=== PATIENT | female | born 1935 | race Caucasian/White ===

== ENCOUNTER 2023-02-17 15:01 | Emergency (ER) | payer MEDICARE, MEDICAID, SELFPAY ==
--- NOTE | ~2023-02-17 | XR_ITS ---
EXAM: XR ankle RT min 3V DATE: 02/17/2023 15:34 HISTORY: rt ankle pain due to fall/medial pain . COMPARISON: None available. FINDINGS: Decreased mineralization. Small ossific fragment in the lateral gutter. No dislocation. No lytic or blastic lesion. Mild scattered degenerative changes. Achilles enthesopathy. No erosion or p eriosteal change. Soft tissue swelling about the ankle. IMPRESSION: Small ossific fragment in the lateral ankle gutter, may represent a small avulsion fractu re fragment. Reviewed, dictated and finalized at location K. IMPRESSION: Small ossific fragment in the lateral ankle gutter, may represent a small avulsion fracture fragment.
[2023-02-17 15:16] VITALS: BP 129/69; PULSE 66; RESP 20; TEMP 37.1; O2SAT 97
--- NOTE | 2023-02-17 15:30 | ED.GENADULT ---
HPI - General Adult General Chief complaint: Extremity Injury, Lower Stated complaint: Rt Foot Pain Due To Fall Time Seen by Provider: 02/17/23 15:17 Source: patient, family (sister) and RN notes reviewed Mode of arrival: ambulatory Limitations: dementia History of Present Illness HPI narrative: Patient presents today from her assisted living facility, [facility], complaining of right great toe pain. States she may have fallen, but has no memory as she is developing dementia. Her possible fall was not witnessed. Pain has been present in the the toe for days. Pain increases with walking. She is also complaining of swelling in the ankle with some bruising. Unsure of how long it has been present. She has not tried any [id number] interventions for her symptoms prior to arrival. Related Data Home Medications Medication Instructions Recorded Confirmed aspirin 81 mg tablet,delayed 81 mg PO DAILY 02/17/23 02/17/23 release atorvastatin 10 mg tablet 10 mg PO DAILY 02/17/23 02/17/23 levothyroxine 25 mcg tablet 25 mcg PO DAILY 02/17/23 02/17/23 multivitamin with folic acid 400 1 tablet PO DAILY 02/17/23 02/17/23 mcg tablet (Daily-Jose Luis (with folic acid)) naproxen sodium 220 mg tablet 440 mg PO BID 02/17/23 02/17/23 olanzapine 5 mg tablet 5 mg PO DAILY 02/17/23 02/17/23 paroxetine HCl 40 mg tablet 40 mg PO DAILY 02/17/23 02/17/23 propranolol 40 mg tablet 40 mg PO BID 02/17/23 02/17/23 vitamins A,C,Q-mzvk-zyqhre 2,148 tablet 02/17/23 mcg-113 mg-45 mg-17.4 mg tablet (Eye Multivitamin) Allergies Allergy/AdvReac Type Severity Reaction Status Date / Time No Known Allergies Allergy Verified 02/17/23 15:04 Review of Systems Review of Systems: CONSTITUTIONAL: Denies body aches, fever, chills, or sweats. EYES: Denies visual changes, redness, or discharge. ENT: Denies rhinorrhea, congestion, sore throat, or otalgia. CARDIOVASCULAR: Denies chest pain, palpitations, or edema. RESPIRATORY: Denies cough or dyspnea. GASTROINTESTINAL: Denies abdominal pain, nausea, vomiting, or diarrhea. GENITOURINARY: Denies dysuria or hematuria. SKIN: Denies rash, itching, or wounds. MUSCULOSKELETAL: Denies back pain, or myalgia.Right ankle swelling, right great toe pain NEUROLOGIC: Denies headache, numbness, tingling, or weakness. PSYCH: Denies depression or anxiety. [facility] Past Medical History Medical History (Updated 02/17/23 @ 15:57 by Anastasia Gray, [facility], ) Dementia High cholesterol Hypothyroidism Comments At time of signature, I have reviewed and agree with nursing past medical, surgical, social and family history unless otherwise noted. Please see nursing chart for further information. There is no relevant family history pertinent to the presenting complaint Exam Narrative: GENERAL: Well-appearing, well-nourished, and in no acute distress. HEAD: Normocephalic, atraumatic. EYES: EOMI. No redness or drainage. Conjunctivae normal. ENT: Mucous membranes pink and moist. NECK: Normal AROM. CHEST: No respiratory distress. EXTREMITIES: Right great toe: Erythema and mild to moderate edema of the nail folds with hypertrophic skin. Moderate purulent discharge laterally, consistent with infected ingrown toenail. Tender to palpation. Right ankle: Patient has 1+ pitting edema to the ankle with some faint ecchymosis medially. One area of point tenderness medially. No bony tenderness. Distal sensation intact. Capillary refill normal. Pedal pulse is strong. Full range of motion of the ankle without pain. No erythema noted. SKIN: Warm, dry, no rash. Capillary refill normal. Normal skin turgor. NEURO: No focal deficits. Alert and oriented x3. Gait steady. PSYCH: Normal affect. No signs of depression or anxiety. Course Course Level of Care: Express Care Visit Vital Signs Vital signs: Vital Signs Temperature 98.7 F 02/17/23 15:16 Pulse Rate 66 02/17/23 15:16 Respi
== END 2023-02-17 15:59 | disposition home or self-care (01) ==
PROVIDERS: Emergency Provider Nurse Practitioner; PCP Family Medicine
DX: L60.0 Ingrowing nail (principal); S93.401A Sprain of unspecified ligament of right ankle, initial encounter; X58.XXXA Exposure to other specified factors, initial encounter; F03.90 Unspecified dementia, unspecified severity, without behavioral disturbance, psychotic disturbance, mood disturbance, and anxiety; E78.00 Pure hypercholesterolemia, unspecified; E03.9 Hypothyroidism, unspecified
CPT/HCPCS: 73610; 99203; G0463

== ENCOUNTER 2024-01-26 16:57 | Emergency (ER) | payer MEDICARE, MEDICAID, SELFPAY ==
[2024-01-26 17:11] VITALS: BP 132/74; PULSE 87; RESP 18; TEMP 36.7; O2SAT 97
--- NOTE | 2024-01-26 17:50 | ED.FEMALEGU ---
HPI - Female Genitourinary General Chief complaint: Urogenital-Female Stated complaint: uti symptoms Time Seen by Provider: 01/26/24 17:25 Source: patient and family Mode of arrival: ambulatory Limitations: no limitations History of Present Illness HPI Narrative: 88-year-old female presents with complaint of urinary frequency, dysuria for 2 days. Reports blood in urine today. Denies nausea vomiting, fever. Patient concerned she has urinary tract infection. Here with her sister. Patient lives at [facility]. All systems reviewed and negative except as noted above. Related Data Home Medications Medication Instructions Recorded Confirmed aspirin 81 mg tablet,delayed 81 mg PO DAILY 02/17/23 01/26/24 release atorvastatin 10 mg tablet 10 mg PO DAILY 02/17/23 01/26/24 levothyroxine 25 mcg tablet 25 mcg PO DAILY 02/17/23 01/26/24 multivitamin with folic acid 400 1 tablet PO DAILY 02/17/23 01/26/24 mcg tablet (Daily-Jose Luis (with folic acid)) naproxen sodium 220 mg tablet 440 mg PO BID 02/17/23 01/26/24 olanzapine 5 mg tablet 5 mg PO DAILY 02/17/23 01/26/24 paroxetine HCl 40 mg tablet 40 mg PO DAILY 02/17/23 01/26/24 propranolol 40 mg tablet 40 mg PO BID 02/17/23 01/26/24 vitamins A,C,R-zhmo-wtklia 2,148 1 tablet PO DAILY 02/17/23 01/26/24 mcg-113 mg-45 mg-17.4 mg tablet (Eye Multivitamin) Allergies Allergy/AdvReac Type Severity Reaction Status Date / Time No Known Allergies Allergy Verified 01/26/24 17:04 Review of Systems Review of Systems: CONSTITUTIONAL: Denies fever, chills, or sweats. EYES: Denies visual changes, redness, or discharge. ENT: Denies rhinorrhea, congestion, sore throat, or otalgia. CARDIOVASCULAR: Denies chest pain, palpitations, or edema. RESPIRATORY: Denies cough or dyspnea. GASTROINTESTINAL: Denies abdominal pain, nausea, vomiting, or diarrhea. GENITOURINARY: Reports dysuria, frequency, hematuria. SKIN: Denies rash or itching. MUSCULOSKELETAL: Denies back pain, joint pain, or myalgia. NEUROLOGIC: Denies headache, numbness, or weakness. PSYCHIATRIC: Denies anxiety or depression. All other systems reviewed are negative, except as documented in HPI. [facility] Past Medical History Medical History (Updated 01/26/24 @ 17:35 by Stacy Sepulveda NP) Dementia High cholesterol Hypothyroidism Comments At time of signature, agree with nursing past medical, surgical, social and family history. There is no relevant family history pertinent to the presenting complaint. Exam Narrative: GENERAL: This is a well-nourished, well-developed patient, in no apparent distress. HEAD: normocephalic, atraumatic. EYES: PERRL. Sclera clear/white. Vision is grossly intact. EARS: External ears normal NOSE: External nose normal NECK: Neck supple, non-tender without lymphadenopathy, masses or thyromegaly. CARDIOVASCULAR: Regular rate and rhythm without murmurs, gallops, or rubs. RESPIRATORY: Clear to auscultation. Breath sounds equal bilaterally. No wheezes, rales, or rhonchi. SKIN: warm, Dry, intact with no suspicious lesions or rash, good texture and turgor. NEURO: awake, alert, and oriented to person, place and time. There were no obvious focal neurologic abnormalities. EXTREMITIES: No joint tenderness, effusion, or edema noted. Course Course Level of Care: Express Care Visit Vital Signs Vital signs: Vital Signs Temperature 36.7 C 01/26/24 17:11 Pulse Rate 87 01/26/24 17:11 Respiratory Rate 18 01/26/24 17:11 Blood Pressure 132/74 01/26/24 17:11 Pulse Oximetry 97 01/26/24 17:11 Oxygen Delivery Room Air 01/26/24 17:11 Temperature 36.7 C 01/26/24 17:11 Pulse Rate 87 01/26/24 17:11 Respiratory Rate 18 01/26/24 17:11 Blood Pressure 132/74 01/26/24 17:11 Pulse Oximetry 97 01/26/24 17:11 Oxygen Delivery Room Air 01/26/24 17:11 reviewed MDM - Female Genitourinary MDM Narrative Medical decision making narrative: lauryus
== END 2024-01-26 17:36 | disposition home or self-care (01) ==
PROVIDERS: Emergency Provider Nurse Practitioner Family; PCP Physician Assistant
DX: N39.0 Urinary tract infection, site not specified (principal); B96.20 Unspecified Escherichia coli [E. coli] as the cause of diseases classified elsewhere; F03.90 Unspecified dementia, unspecified severity, without behavioral disturbance, psychotic disturbance, mood disturbance, and anxiety; E78.00 Pure hypercholesterolemia, unspecified; E03.9 Hypothyroidism, unspecified; Z79.82 Long term (current) use of aspirin
CPT/HCPCS: 81003; 87077; 87086; 87088; 87186; 99213; G0463

== ENCOUNTER 2024-08-30 13:11 | Emergency (ER) | payer MEDICARE, OTHER, SELFPAY ==
--- NOTE | 2024-08-30 13:14 | ED.URI ---
HPI - URI/Sore Throat General Chief Complaint: Upper Respiratory Infection Stated Complaint: loss of voice,drainage,sore throat Time Seen by Provider: 08/30/24 13:41 Source: patient, RN notes reviewed and old records reviewed Mode of arrival: ambulatory Limitations: no limitations History of Present Illness HPI Narrative: 89-year-old female presents to the [facility] with a sore throat, postnasal drainage, loss of voice that started 2 days ago. Patient lives in [facility]. Presents with sister. History of dementia. Last night the sister reports she had a fever of 100.9, was given Tylenol Onset (ago): day(s) (2) Related Data Home Medications ?Medication ?Instructions ?Recorded ?Confirmed ?Last Taken ?Type aspirin 81 mg tablet,delayed 81 mg PO DAILY 02/17/23 01/26/24 Unknown History release atorvastatin 10 mg tablet 10 mg PO DAILY 02/17/23 01/26/24 Unknown History levothyroxine 25 mcg tablet 25 mcg PO DAILY 02/17/23 01/26/24 Unknown History multivitamin with folic acid 400 1 tablet PO DAILY 02/17/23 01/26/24 Unknown History mcg tablet (Daily-Jose Luis (with folic acid)) naproxen sodium 220 mg tablet 440 mg PO BID 02/17/23 01/26/24 Unknown History olanzapine 5 mg tablet 5 mg PO DAILY 02/17/23 01/26/24 Unknown History paroxetine HCl 40 mg tablet 40 mg PO DAILY 02/17/23 01/26/24 Unknown History propranolol 40 mg tablet 40 mg PO BID 02/17/23 01/26/24 Unknown History vitamins A,C,I-ratx-sozngz 2,148 1 tablet PO DAILY 02/17/23 01/26/24 Unknown History mcg-113 mg-45 mg-17.4 mg tablet (Eye Multivitamin) Allergies Allergy/AdvReac Type Severity Reaction Status Date / Time No Known Allergies Allergy Verified 08/30/24 13:28 Review of Systems Review of Systems: All systems reviewed & are unremarkable except as noted in HPI and below Constitutional: Constitutional: Reports no additional constitutional complaints ENT: Reports as per HPI, Reports nasal congestion, Reports nasal discharge and Reports sore throat Cardiovascular: Cardiovascular: Reports no additional cardiovascular complaints, Denies chest pain and Denies dyspnea Respiratory: Respiratory: Reports no additional respiratory complaints, Denies chest congestion, Denies cough and Denies dyspnea Musculoskeletal: Musculoskeletal: Reports no additional musculoskeletal complaints Integumentary/Breasts: Skin/Breast: Reports system reviewed and no additional complaints, except as docu [facility] Past Medical History Medical History Dementia Hypothyroidism High cholesterol Comments At the time of my signature, I reviewed and agree with the nursing past medical, surgical, social, and family history. There is no relevant family history pertinent to the patient complaint. Exam Const: General: cooperative, healthy appearing, comfortable, no acute distress, well developed, alert and well nourished Nutritional Appearance: well nourished Orientation/consciousness: patient oriented x3 Limitations: no limitations HENMT: Head: normal to inspection Ears: hearing grossly normal bilaterally, external ears normal, TM's normal bilaterally, EAC's normal, mastoids normal and no periauricular adenopathy Face/Nose/Sinus: Normal external nose present and Nasal discharge present clear Mouth: Yes Normal oral and palatal mucosa present, Yes lip normal, Yes tongue normal and Yes moist mucous membranes Throat: posterior oropharynx normal, uvula midline, postnasal drainage and no uvular edema Eyes: General: appearance normal, both eyes and all related structures Alignment and Position: alignment normal Neck: Neck: normal visual inspection, full ROM, no lymphadenopathy and no meningeal signs Chest: Chest palpation & inspection: normal inspection of the chest Resp: Effort & Inspection: normal respiratory effort and able to speak in complete sentences Auscultation: clear to auscultation bilaterally, no crackles, no rales, no rhonchi and no wheezes Cardio: Rate: regular rate Skin: General skin exam: normal color and no rashes or lesions noted Neuro: General: patient oriented x3, gait normal, moves all extremities and no meningeal signs Cognition (Neuro): normal cognition Speech: normal speech Gait exam (Neuro): Normal gait present Extrem: General: normal to inspection, full ROM, capillary refill normal and normal gait Psych: Appearance: grossly normal and well kempt Mental Status: mental status grossly normal Speech and movement: Normal speech and movement present and Clear speech present Affect: normal affect Attitude: cooperative Course Course Level of Care: Express Care Visit Vital Signs Vital signs: Vital Signs Temperature 98.7 F 08/30/24 13:26 Pulse Rate 69 08/30/24 13:26 Respiratory Rate 20 08/30/24 13:26 Blood Pressure 147/68 H 08/30/24 13:26 Pulse Oximetry 96 08/30/24 13:26 Oxygen Delivery Room Air 08/30/24 13:26 Temperature 98.7 F 08/30/24 13:26 Pulse Rate 69 08/30/24 13:26 Respiratory Rate 20 08/30/24 13:26 Blood Pressure 147/68 H 08/30/24 13:26 Pulse Oximetry 96 08/30/24 13:26 Oxygen Delivery Room Air 08/30/24 13:26 Reviewed MDM - URI/Sore Throat MDM Narrative Medical decision making narrative: Patient sitting comfortably in exam room. Presents with sister. Patient is nontoxic in appearance. Patient presents with sore throat, postnasal drainage and a runny nose. Patient has flu, COVID and strep were negative. No acute findings other than postnasal drainage noted on exam. Patient is appropriate for outpatient treatment and follow-up Discharge instructions reviewed with patient, as well as provided in writing per nursing staff. The instructions also include specific and strict return/GO TO THE ER as well as f/u information. All questions have been answered, and the patient deny any further questions with discharge and discharge plan. Some parts of this dictation were generated by voice recognition software and may contain typographical and/or grammatical inaccuracies. Differential Diagnosis Differential diagnosis: Likely upper respiratory infection, otitis media, sinusitis, viral infection, bronchitis, influenza and pharyngitis Lab Data Labs: Lab Results 08/30/24 Range/Units 13:30 POC Influenza A Ag Negative (Negative) POC Influenza B Ag Negative (Negative) POC SARS CoV-2 Ag Negative (Negative) POC Grp A Strep Screen Negative (Negative) Reviewed Critical Care Time Critical Care Time Critical Care Time: No Discharge Plan Discharge Clinical Impression: Post-nasal drainage Upper respiratory infection Qualifiers: URI type: unspecified viral URI Qualified Code(s): J06.9 - Acute upper respiratory infection, unspecified Patient Disposition: Home, Self-Care Condition: Stable Instructions: Antibiotic Form, Upper Respiratory Infection (ED), Viral Syndrome (ED), Postnasal Drip (DC) Additional Instructions: Your rapid strep swab was negative today at [facility]. A throat culture will be sent to the laboratory for further testing. If the test is positive, you will receive a phone call within 48 hours and an appropriate antibiotic will be initiated at that time. Your rapid COVID test were negative Your rapid flu test was negative Your symptoms are likely due to a viral illness, which is not treated with antibiotics. Typically viral infections last 7-10 days, can linger for couple of weeks. It is very important to treat your symptoms. Drink plenty of water, Gatorade, Pedialyte, ice pops or Jell-O. -Alternate Tylenol and Motrin per package directions for fever or pain. You can alternate every 4 hours -Antihistamine medication such as Zyrtec/Claritin/Amelie during the day can help improve symptoms. -doing daily nasal irrigations can help relieve pressure your sinuses. Things like a Neti pot -Use Flonase daily to help reduce the inflammation and dry up your sinuses. -You can also use Coricidin HBP. Be sure to drink plenty of water with this medication at least 8 ounces with every dose and it is important to drink 8 to 10 glasses of water per day. Water is a natural decongestant -Eat and drink things that are easy to swallow, like tea or soup, or popsicles. -Oral rinses such as: Salt water gargles and/or may use topical anesthetic (eg. Chloraseptic spray) or lozenges to relieve dryness or throat pain). -Frequent hand washing or hand broker associate is one of the best ways to prevent spread of infection. -Using a vaporizer or humidifier at night will also help thin secretions and help with coughing up phlegm. -Follow up with primary care provider in 7-10 days if condition is not improving - For new or worsening symptoms go directly to the nearest ER Patient Language: Guatemalan Prescriptions: No Action atorvastatin 10 mg tablet 10 mg PO DAILY olanzapine 5 mg tablet 5 mg PO DAILY levothyroxine 25 mcg tablet 25 mcg PO DAILY propranolol 40 mg tablet 40 mg PO BID paroxetine HCl 40 mg tablet 40 mg PO DAILY aspirin 81 mg tablet,delayed release (DR/EC) 81 mg PO DAILY naproxen sodium 220 mg tablet 440 mg PO BID Eye Multivitamin 2,148 mcg-113 mg-45 mg-17.4mg tablet 1 tablet PO DAILY multivitamin with folic acid [Daily-Jose Luis (with folic acid)] 400 mcg tablet 1 tablet PO DAILY Follow-up/Referrals: Buzz,ABRAM Bonilla [Primary Care Provider] - 1 Week ([facility] follow up ) Time of Disposition: 14:10
[2024-08-30 13:26] VITALS: BP 147/68; PULSE 69; RESP 20; TEMP 37.1; O2SAT 96
[2024-08-30 13:44] LABS: EDSTREPNEGPOS1 Negative (Negative)
[2024-08-30 14:11] LABS: EDCOVIDSCREEN Negative (Negative); EDINFLUASCREEN Negative (Negative); EDINFLUBSCREEN Negative (Negative)
== END 2024-08-30 14:20 | disposition home or self-care (01) ==
PROVIDERS: Emergency Provider Nurse Practitioner; PCP Physician Assistant
DX: J06.9 Acute upper respiratory infection, unspecified (principal); Z79.82 Long term (current) use of aspirin; F03.90 Unspecified dementia, unspecified severity, without behavioral disturbance, psychotic disturbance, mood disturbance, and anxiety; E03.9 Hypothyroidism, unspecified; E78.00 Pure hypercholesterolemia, unspecified; Z20.822 Contact with and (suspected) exposure to COVID-19
CPT/HCPCS: 87081; 87426; 87804; 87880; 99213; G0463